=== PATIENT | female | born 1950 | race Two or more races ===

== ENCOUNTER → 2017-09-05 | Outpatient (CLI) | payer OTHER ==
[~2017-09-05] MED LIST: IMODIUM2 MG PO; PEPCID40 MG PO; ZOFRAN4 MG PO
== END | disposition home or self-care (01) ==
LOC: RAD 11:58
DX: R06.02 Shortness of breath (principal); M17.0 Bilateral primary osteoarthritis of knee; M25.561 Pain in right knee; M25.562 Pain in left knee; M54.5 Low back pain; M62.830 Muscle spasm of back

== ENCOUNTER 2018-08-26 09:10 | Outpatient (CLI) | payer OTHER | END 2018-08-26 14:02 | disposition home or self-care (01) | LOC: NUCLEAR 09:10 | DX: I87.2 Venous insufficiency (chronic) (peripheral) (principal) ==

== ENCOUNTER → 2018-12-25 | Outpatient (CLI) | payer OTHER | END | disposition home or self-care (01) | LOC: RAD 11:22 | DX: M17.0 Bilateral primary osteoarthritis of knee (principal); M25.561 Pain in right knee; M25.562 Pain in left knee ==

== ENCOUNTER → 2019-03-09 | Outpatient (CLI) | payer OTHER | END | disposition home or self-care (01) | LOC: LAB 11:01 | DX: N20.0 Calculus of kidney (principal) ==

== ENCOUNTER 2019-03-11 10:13 | Outpatient (CLI) | payer OTHER | END 2019-03-11 10:16 | disposition home or self-care (01) | LOC: TOM 10:13 | DX: G44.309 Post-traumatic headache, unspecified, not intractable (principal) | CPT/HCPCS: 70470; Q9965 ==

== ENCOUNTER → 2020-04-07 | Outpatient (CLI) | payer OTHER | END | disposition home or self-care (01) | LOC: OFIC 805 10:30 | PROVIDERS: ATTEND Otolaryngology | DX: C71.2 Malignant neoplasm of temporal lobe (principal); H93.13 Tinnitus, bilateral; H93.8X3 Other specified disorders of ear, bilateral; R09.81 Nasal congestion ==

== ENCOUNTER 2020-08-24 12:16 | Outpatient (CLI) | payer OTHER | END 2020-08-24 15:30 | disposition home or self-care (01) | LOC: OFIC 805 12:16 | PROVIDERS: ATTEND Otolaryngology Otology & Neurotology | DX: H93.8X3 Other specified disorders of ear, bilateral (principal); H93.13 Tinnitus, bilateral; R09.81 Nasal congestion ==

== ENCOUNTER 2023-01-22 12:15 | Inpatient (IN) | payer OTHER ==
[~2023-01-22] VITALS: Ht 170.2 cm; Wt 100.7 kg
[2023-01-22] MEDS ORDERED: TOPROL XL25 M1 PO (14:15)
[2023-01-22] MEDS ORDERED: COMBIGAN EYE DRO5 ML OP (14:15)
[2023-01-22] MEDS ORDERED: ATACAND32 MG PO (14:16)
[2023-01-22] MEDS ORDERED: LEVOTHY (14:17)
[2023-01-22] MEDS ORDERED: TENTRAL PO (14:17)
[2023-01-22] MEDS ORDERED: LIPIT PO (14:18)
[2023-01-22] MEDS ORDERED: PREDNISONE PO (14:18)
[2023-01-30 07:32] LABS: HEMATOCRIT 36.5 % (36.0-45.00); HEMOGLOBIN 12.2 g/dL (12.0-15.00); MEAN CELL VOLUME 97.4 fL (80.00-100.00); MEAN CORPUSCULAR HEMOGLOBIN 32.6 pg (27.00-32.0); MEAN CORPUSCULAR HGB CONC 33.4 g/dl (32.0-36.0); PLATELET COUNT 222 K/uL (150-450); RED BLOOD COUNT 3.75 M/uL (4.00-6.00); RED CELL DISTRIBUTION WIDTH 13.7 % (11.5-14.5)
[2023-01-30] MEDS ORDERED: ATORVASTATIN CA20 MG (09:11)
[2023-01-30] MEDS ORDERED: PENTOXIFYLLINE400 MG (09:11)
[2023-01-30] MEDS ORDERED: LEVOTHYROXINE50 MCG (09:11)
[2023-01-30] MEDS ORDERED: PANTOPRAZOLE SO40 MG (09:11)
[2023-01-30] MEDS ORDERED: PREDNISONE10 M2 (09:12)
[2023-01-31 06:53] LABS: HEMATOCRIT 36.8 % (36.0-45.00); MEAN CELL VOLUME 98.2 fL (80.00-100.00); MEAN CORPUSCULAR HEMOGLOBIN 31.9 pg (27.00-32.0); MEAN CORPUSCULAR HGB CONC 32.5 g/dl (32.0-36.0); PLATELET COUNT 216 K/uL (150-450); RED BLOOD COUNT 3.75 M/uL (4.00-6.00); RED CELL DISTRIBUTION WIDTH 13.4 % (11.5-14.5)
== END 2023-01-31 19:22 | DRG 470 ==
LOC: O/R 01-29 07:20 → SURG 01-29 12:15 → SURH 01-29 13:16
PROVIDERS: ADMIT Orthopaedic Surgery; ATTEND Orthopaedic Surgery
PROC: 0SRD0JZ Replacement of Left Knee Joint with Synthetic Substitute, Open Approach (ICD-10-PCS; principal; 2023-01-29 13:00)
DX: M17.12 Unilateral primary osteoarthritis, left knee (principal); D62 Acute posthemorrhagic anemia; M85.662 Other cyst of bone, left lower leg; I10 Essential (primary) hypertension